=== PATIENT | female | born 1940 | race Hispanic/Latino ===

== ENCOUNTER 2021-02-26 13:59 | Outpatient (CLI) | payer OTHER, SELFPAY ==
[2021-02-26 16:01] LABS: INR-International Normal Ratio 0.9; Prothrombin Time 10.4 sec (9.5-12.1)
[2021-02-26 16:04] LABS: #Basophils 0.1 10x3/uL (0.0-0.2); #Eosinphils 0.1 10x3/uL (0.0-0.5); #Monocytes 0.4 10x3/uL (0.0-1.1); %Eosinophils 2.4 % (0.0-6.0); %Lymphocytes 38.6 % (18.0-47.0); %Monocytes 7.1 % (0.0-10.0); %Neutrophils 50.6 % (40.0-75.0); Hemoglobin 12.4 g/dL (12.0-15.5); Mean Corpuscular HGB CONC 34.8 g/dL (32.0-36.0); Mean Corpuscular Hemoglobin 31.6 pg (27.0-33.0); Mean Corpuscular Volume 90.8 fl (81.6-98.3); Mean Platelet Volume 10.4 fl (7.4-10.4); Platelet Count 200 10x3/uL (150-450); RBC Distribution Width 11.6 % (11.5-14.5); Red Blood Cell (RBC) Count 3.92 10x6/uL (3.90-5.03); White Blood Cell (WBC) Count 5.9 10x3/uL (3.5-10.5)
[2021-02-26 16:57] LABS: Anion Gap 12 mmol/L (10-20); BUN (Urea Nitrogen) 17 mg/dL (9.8-20.1); Calc. Creatinine Clearance 0 mL/min (70-130); Calcium 8.6 mg/dL (7.8-10.44); Carbon Dioxide 29 mmol/L (23-31); Chloride 96 mmol/L (98-107); Glucose 185 mg/dL (83-110); Potassium 4.4 mmol/L (3.5-5.1); Sodium 133 mmol/L (136-145)
[2021-02-27 02:10] LABS: SARS-CoV-2 PCR by NAA Not Detected (NotDetected)
== END 2021-02-26 14:00 | disposition home or self-care (01) ==
LOC: LABBT 13:59
PROVIDERS: ATTEND Orthopaedic Surgery
DX: Z01.818 Encounter for other preprocedural examination (principal); M17.0 Bilateral primary osteoarthritis of knee; Z20.822 Contact with and (suspected) exposure to COVID-19
CPT/HCPCS: 80048; 85025; 85610; 87081; 87635; 93005; 93010; U0003; U0005

== ENCOUNTER 2021-02-26 14:00 | Inpatient (IN) | payer OTHER ==
[2021-03-03] MEDS ORDERED: Fentanyl 100 MCG/2 ML VIAL ONE (07:31)
[2021-03-03] MEDS ORDERED: Lidocaine 1% (PF) 30 ML VIAL ONE (07:31)
[2021-03-03] MEDS ORDERED: Levofloxacin 500 mg/D5W 100 ml Premix Bag ONE (08:02)
[2021-03-03] MEDS ORDERED: Vancomycin 1 GM/200 ML BAG ONE ×2 (08:02)
[2021-03-03] MEDS ORDERED: Tranexamic Acid 1,000 MG/10 ML VIAL ONE ×2 (08:02→08:10)
[2021-03-03] MEDS ORDERED: Clindamycin/D5W 900 mg/50 ml Premix Bag ONE (08:02)
[2021-03-03] MEDS ORDERED: Sodium Chloride 0.9% 100 ML ONE ×2 (08:03→08:09)
[2021-03-03] MEDS ORDERED: Bupivacaine HCl 0.5%/Epinephrine 1:200,000/PF 30 ml Vial ONE (08:30)
[2021-03-03] MEDS ORDERED: Ropivacaine 2% HCl/PF (20 MG/10 ML VIAL) ONE (08:30)
[2021-03-03] MEDS ORDERED: Fentanyl 100 MCG/2 ML VIAL SLOW IVP PRN (08:36)
[2021-03-03] MEDS ORDERED: Promethazine HCl 25 MG/ML VIAL IM PRN ×2 (08:45→13:49)
[2021-03-03] MEDS ORDERED: Ondansetron PF 4 MG/2 ML Vial IVP PRN ×2 (08:45→13:49)
[2021-03-03] MEDS ORDERED: HYDROcodone/Acetaminophen 10/325 mg Tablet PO PRN ×2 (08:45)
[2021-03-03] MEDS ORDERED: Ropivacaine HCl/PF 250 ML in Premix Bag 1 BAG NERVE BLCK SCH (08:45)
[2021-03-03] MEDS ORDERED: traMADol HCl 50 MG TAB PO PRN ×2 (08:45)
[2021-03-03] MEDS ORDERED: Zolpidem Tartrate 5 MG TAB PO PRN ×2 (08:45→13:49)
[2021-03-03] MEDS ORDERED: Ondansetron PF 4 MG/2 ML Vial ONE (08:50)
[2021-03-03] MEDS ORDERED: Bupivacaine 0.25% HCL 30 ML VIAL ONE (09:19)
[2021-03-03] MEDS ORDERED: EPINEPHrine 1 MG/ML AMP ONE (09:19)
[2021-03-03] MEDS ORDERED: Clindamycin/D5W 600 mg/50 ml Premix Bag ONE ×2 (09:40→09:59)
[2021-03-03] MEDS ORDERED: Labetalol HCl 100 MG/20 ML VIAL ONE (10:46)
[2021-03-03] MEDS ORDERED: Ketorolac Tromethamine 30 MG/ML VIAL IVP SCH (12:00)
[2021-03-03] MEDS ORDERED: Acetaminophen 325 MG TAB PO PRN (13:49)
[2021-03-03] MEDS ORDERED: diphenhydrAMINE 25 MG CAP PO PRN (13:49)
[2021-03-03 16:14] VITALS: BMI 27.3
[2021-03-03] MEDS ORDERED: methylPREDNISolone Sod Succ 40 MG VIAL IVP SCH (18:00)
[2021-03-03] MEDS: Pregabalin 25 MG CAP PO SCH (20:18)
[2021-03-03] MEDS ORDERED: Propranolol 10 MG TAB PO SCH (21:00)
[2021-03-03] MEDS ORDERED: Losartan 25 MG TAB PO SCH (21:00)
[2021-03-04] MEDS ORDERED: Ferrous Gluconate 324 MG TAB PO SCH (09:00)
[2021-03-04] MEDS ORDERED: Multivitamin W/ Minerals 1 TAB PO SCH (09:00)
[2021-03-04] MEDS ORDERED: methylPREDNISolone Sod Succ 40 MG VIAL IVP SCH (09:00)
[2021-03-04] MEDS ORDERED: Senokot S 8.6-50 MG TAB PO SCH (09:00)
[2021-03-04] MEDS ORDERED: Meloxicam 15 MG TAB PO SCH (09:00)
[2021-03-04] MEDS: Pregabalin 25 MG CAP PO SCH (10:48)
[2021-03-04 13:19] VITALS: BP 122/64; TEMP 98.2
== END 2021-03-04 13:21 | disposition home or self-care (01) | DRG 916 ==
LOC: SJJU 03-03 06:51 → T4-A 03-03 15:38
PROVIDERS: ADMIT Orthopaedic Surgery; ATTEND Orthopaedic Surgery
DX: T88.6XXA Anaphylactic reaction due to adverse effect of correct drug or medicament properly administered, initial encounter (principal); M17.0 Bilateral primary osteoarthritis of knee; T36.8X5A Adverse effect of other systemic antibiotics, initial encounter; G89.29 Other chronic pain; I10 Essential (primary) hypertension; G50.0 Trigeminal neuralgia; F32.9 Major depressive disorder, single episode, unspecified; Z20.822 Contact with and (suspected) exposure to COVID-19; Z88.0 Allergy status to penicillin
CPT/HCPCS: C1713; J0171; J1956; J2001; J2405; J2795; J2920; J3010; J3370; J3490; S0020

== ENCOUNTER 2022-11-25 07:28 | Outpatient (CLI) | payer BC | END 2022-11-25 07:29 | disposition home or self-care (01) | LOC: ULT 07:28 | PROVIDERS: ATTEND Family Medicine | DX: R18.8 Other ascites (principal); K76.0 Fatty (change of) liver, not elsewhere classified; K76.89 Other specified diseases of liver | CPT/HCPCS: 76700; 76856 ==

== ENCOUNTER 2023-03-28 15:24 | Outpatient (CLI) | payer BC | END 2023-03-28 15:25 | disposition home or self-care (01) | LOC: BICRAD 15:24 | PROVIDERS: ATTEND Family Medicine | DX: M25.551 Pain in right hip (principal) ==